=== PATIENT | male | born 1990 | race Caucasian/White ===

== ENCOUNTER 2017-05-23 20:37 | Emergency (ER) | payer MEDICAID ==
--- NOTE | 2017-05-23 21:35 | ED Physician Chart ---
ED Chief Complaint/HPI - Patient Information Date Seen:: 05/23/17 Time Seen:: 20:52 Chief Complaint:: Abdominal pain for one day. History of Present Illness:: Brought in by private auto with his for the above reason. Pt is [place] speaking. Interpretation is provided by his per pt's request. Pt has had intermittent localized dull upper abdominal pain, precipitated with abdominal movements and relived by lying still. no fever. No N/V/D. Last BM earlier this evening that loose but was normal in color. No hematochezia or melena. No lightheadedness. Allergies:: Allergies Allergy/AdvReac Type Severity Reaction Status Date / Time No Known Allergies Allergy Verified 05/23/17 20:46 Vitals:: Vital Signs - 8 hr 05/23/17 20:40 Temp 98.2 F HR 64 RR 18 BP 126/76 O2 Sat % 97 Historian:: Patient Family MD/PCP:: Dr. Dimas LMP:: N/A Review:: Nurse's Note Reviewed ED Review of Systems - Review of Systems General/Constitutional: No fever, No chills, No weight loss, No weakness, No edema, No loss of appetite Skin: No skin lesions, No rash, No bruising Head: No headache, No light-headedness Eyes: No loss of vision, No pain, No diplopia ENT: No earache, No nasal drainage, No sore throat, No tinnitus Neck: No neck pain, No swelling, No thyromegaly, No stiffness, No mass noted Cardio Vascular: No chest pain, No palpitations, No edema Pulmonary: No SOB, No cough, No sputum, No wheezing GI: No nausea, No vomiting, Diarrhea (Stool was loose but nonbloody earlier), Pain, No melena, No hematochezia, No constipation, No hematemesis G/U: No dysuria, No frequency, No hematuria Musculoskeletal: No back pain Endocrine: No polyuria, No polydipsia Psychiatric: No prior psych history Hematopoietic: No bruising, No lymphadenopathy Allergic/Immuno: No urticaria, No angioedema Neurological: No syncope, No focal symptoms, No weakness, No paresthesia, No headache, No seizure, No vertigo, Other ED Past Medical History - Past Medical History Past Medical History: No significant medical hx Family History: None Social History: Smoker (occasional. Pt has been informed about health risks associated with tobacco use and has been advised to quit. Pt has been encouraged to enroll in a smoking cessation program. Pt acknowledges understanding.), Alcohol (rare), No Drug Use, , Employed, Other (lives with his .) Employment:: auto customize painter. Surgical History: None Psychiatricy History: None Medication: Reviewed Family Medical History - Family Member Mother History Unknown: Yes Ethnicity: Living Status: Still Living ED Labs/Radiology/EKG Results - Lab Results Results: Laboratory Tests 05/23/17 05/23/17 05/23/17 20:46 21:56 21:56 WBC 8.7 RBC 5.18 Hgb 16.9 Hct 48.6 MCV 93.8 MCH 32.6 H MCHC Differential 34.7 RDW 11.7 Plt Count 232 MPV 6.8 Neutrophils % 80.6 H Lymphocytes % 13.5 L Monocytes % 4.2 Eosinophils % 1.6 Basophils % 0.1 PT 9.7 INR 0.93 PTT (Actin FS) 25.8 L Sodium Potassium Chloride Carbon Dioxide Anion Gap BUN Creatinine Est GFR ( Amer) Est GFR (Non-Af Amer) BUN/Creatinine Ratio Glucose Calcium Total Bilirubin AST ALT Alkaline Phosphatase Total Protein Albumin Globulin Albumin/Globulin Ratio Amylase Lipase Urine Source CLEAN C Urine Color YELLOW Urine Clarity CLEAR Urine pH 6.0 Ur Specific [place] 1.010 Urine Protein NEGATIVE Urine Glucose (UA) NEGATIVE Urine Ketones NEGATIVE Urine Blood NEGATIVE Urine Nitrate NEGATIVE Urine Bilirubin NEGATIVE Urine Urobilinogen 0.2 Ur Leukocyte Esterase NEGATIVE Urine RBC NONE SEEN Urine WBC NONE SEEN Ur Epithelial Cells NONE SEEN Urine Bacteria NONE SEEN 05/23/17 21:56 WBC RBC Hgb Hct MCV MCH MCHC Differential RDW Plt Count MPV Neutrophils % Lymphocytes % Monocytes % Eosinophils % Basophils % PT INR PTT (Actin FS) Sodium 134 L Potassium 3.3 L Chloride 103 Carbon Dioxide 24.6 Anion Gap 9.7 BUN 13 Creatinine 1.0 Est GFR ( Amer) > 60.0 Est GFR (Non-Af Amer) > 60.0 BUN/Creatinine Ratio 13.0 Glucose 109 H Calcium 9.2 Total Bilirubin 0.6 AST 23 ALT 54 H Alkaline Phosphatase 87 Total Protein 7.4 Albumin 4.6 Globulin 2.8 Albumin/Globulin Ratio 1.6 Amylase 53 Lipase 18 Urine Source Urine Color Urine Clarity Urine pH Ur Specific [place] Urine Protein Urine Glucose (UA) Urine Ketones Urine Blood Urine Nitrate Urine Bilirubin Urine Urobilinogen Ur Leukocyte Esterase Urine RBC Urine WBC Ur Epithelial Cells Urine Bacteria - Radiology Results Results: CT of abdomen and pelvis without contrast: Short segment of small bowel thickening in the right lower quadrant with mild associated mesenteric edema. Findings are suspicious for enteritis. No evidence of obstruction. No free air. Appendix is normal. Hepatic steatosis. Gallbladder, pancreas, spleen, kidneys and adrenals are unremarkable on noncontrast exam. Official report per Dr. David Parker, radiologist. ED Septic Shock - . Is Septic Shock (SBP<90, OR Lactate>4 mmol\L) present?: No - <6hrs of presentation: Vital Signs: Vital Signs - 8 hr 05/23/17 20:40 Temp 98.2 F HR 64 RR 18 BP 126/76 O2 Sat % 97 ED Reassessment (Disposition) - Reassessment Reassessment:: 1105 Pt has been repeatedly evaluated. Pt feels much better and does not need more pain control. Awaiting CT report. 0045 Pt has been pain free. No N/V/D. CT report just became available. Lab and CT findings have been reviewed with pt. Management plan has been discussed. Pt requests to go home now and does not want further observation/management in hospital. Aftercare instructions have been given. Interpretation by his , who will also drive pt home. Reassessment Condition:: Improved - Diagnosis Diagnosis:: Early viral gastroenteritis, stable. Mild hypokalemia, stable - Aftercare/Follow up Instructions Aftercare/Follow-Up Instructions:: Refer to Discharge Instructions Notes:: Bedrest for today. Clear liquid diet for now. Advance diet as tolerated starting tomorrow. Increase oral intake of potassium rich foodstuffs, such as banana, etc. Drowsiness precautions given with the. use of Dilaudid. Abdominal Pain Instructions gvien. F/U with PCP Dr. Dimas in one day for recheck with repeat lab study: CMP. A copy of CT report as well as lab reports have been given to pt per nursing staff for pt to take to PCP Dr. Dimas for further evaluation. Return to ER immediately if condition worsens or if any further questions/problems. Medication Prescribed:: None - Patient Disposition Discharge/Transfer:: Home Time:: 00:50 Condition at Disposition:: Stable, Improved ED Discharge Plan - Patient Disposition Instructions: Viral Gastroenteritis, [id number] Additional Instructions: FOLLOW UP WITH YOUR DOCTOR IN 1-2 DAYS AND TO COME BACK TO ER IF SYMPTOMS WORSEN
[2017-05-23] MEDS ORDERED: HYDROmorphone 1 mg/mL 1mL Syr IVP STA (21:47)
[2017-05-23] MEDS ORDERED: HYDROmorphone 1 mg/mL 1mL Syr ONE (22:00)
[2017-05-23 22:06] LABS: % BASOPHILS 0.1 % (0.0-2.0); % EOSINOPHILS 1.6 % (0.0-5.0); % LYMPHOCYTES 13.5 % (20.0-50.0); % MONOCYTES 4.2 % (2.0-10.0); % NEUTROPHILS 80.6 % (40.0-80.0); HEMATOCRIT 48.6 % (41.0-60); HEMOGLOBIN 16.9 gm/dL (12-16); MEAN CELL VOLUME 93.8 fl (80-99); MEAN CORPUSCULAR HEMOGLOBIN 32.6 pg (26.0-30.0); MEAN CORPUSCULAR HGB CONC 34.7 pg (28.0-36.0); MEAN PLATELET VOLUME 6.8 fl; PLATELET COUNT 232 Th/cmm (150-400); RED BLOOD COUNT 5.18 Mil/cmm (4.30-5.70); RED CELL DISTRIBUTION WIDTH 11.7 % (11.5-20.0); WHITE BLOOD COUNT 8.7 Th/cmm (4.8-10.8)
[2017-05-23 22:14] LABS: URINE BILIRUBIN NEGATIVE (NEGATIVE); URINE BLOOD NEGATIVE (NEGATIVE); URINE GLUCOSE (UA) NEGATIVE (NEGATIVE); URINE KETONE NEGATIVE (NEGATIVE); URINE PROTEIN NEGATIVE (NEGATIVE); URINE UROBILINOGEN 0.2 E.U./dL (0.2 - 1.0)
[2017-05-23 22:17] LABS: URINE COLOR YELLOW
[2017-05-23 22:17] LABS: ALB/GLOB RATIO 1.6 (1.0-1.8); ALKALINE PHOSPHATASE 87 U/L (34-104); AMYLASE SERUM 53 U/L (29-103); ANION GAP 9.7 (7.0-16.0); BILIRUBIN,TOTAL 0.6 mg/dL (0.3-1.0); BUN - UREA NITROGEN 13 mg/dL (7-25); CALCIUM SERUM 9.2 mg/dL (8.6-10.3); CARBON DIOXIDE 24.6 mEq/L (21.0-31.0); CHLORIDE 103 mEq/L (98-107); GLUCOSE 109 mg/dL (70-105); INR 0.93 (0.5-1.4); LIPASE 18 U/L (11-82); POTASSIUM SERUM 3.3 mEq/L (3.5-5.1); PROTHROMBIN TIME (TEST) 9.7 SECONDS (9.5-11.5); SGOT 23 U/L (13-39); SGPT/ALT 54 U/L (7-52); SODIUM SERUM 134 mEq/L (136-145)
[2017-05-23 22:18] LABS: URINE BACTERIA NONE SEEN /hpf (NONE SEEN); URINE EPITHELIAL CELLS NONE SEEN /lpf (FEW); URINE RBC NONE SEEN /hpf (0-5); URINE WBC NONE SEEN /hpf (0-5)
[2017-05-23] MEDS ORDERED: Potassium Chloride 20 mEq ER Tab PO ONE ×2 (23:07→23:09)
--- NOTE | 2017-05-24 07:08 | Diagnostic Imaging Report ---
CT scan of the abdomen and pelvis without intravenous contrast History: Upper abdominal pain Total DLP equals 453 CTDI equals 9.2 Axial sections were obtained from the xiphoid process down to the pubic symphysis. The liver demonstrates a normal size and contour. There is evidence for hepatomegaly. No focal lesions are seen. The spleen appears normal. No abnormalities are seen in the region of the pancreas. The kidneys appear normal bilaterally. There is a question of thickening of the short segment of the small bowel in the right lower quadrant with mild mesenteric edema. This might represent enteritis. The exam of the pelvis demonstrates preservation of normal fat planes. No abnormal soft tissue masses. No abnormal fluid collections. The prostate gland is enlarged Impression: Shortness segment of small bowel thickening right lower quadrant with association mesenteric edema question of enteritis.
== END 2017-05-24 00:55 | disposition home or self-care (01) ==
LOC: ER 20:37
DX: A08.4 Viral intestinal infection, unspecified (principal); E87.6 Hypokalemia
CPT/HCPCS: 36415-UA; 80053-TC; 81001-TC; 82150-TC; 83690-TC; 85025-TC; 85610-TC; 85730-TC; 96374; J1170; J1885